=== PATIENT | female | born 1960 | race Caucasian/White ===

== ENCOUNTER 2017-02-10 09:59 | Emergency (ER) | payer OTHER, SELFPAY ==
[~2017-02-10 09:59] MED LIST: Iopamidol 370 76% 100 ML VIAL ONE
[2017-02-10 10:52] LABS: #Eosinphils 0.1 thou/uL (0.0-0.7); #Lymphocytes 1.1 thou/uL (1.20-3.40); #Monocytes 0.4 thou/uL (0.11-0.59); #Neutrophils 10.1 thou/uL (1.40-6.50); %Basophils 0.2 % (0.0-1.0); %Eosinophils 0.5 % (0.0-10.0); %Lymphocytes 9.1 % (21.0-51.0); %Monocytes 3.8 % (0.0-10.0); %Neutrophils 86.4 % (42.0-75.0); Hemoglobin 14.9 g/dL (12.0-16.0); Mean Corpuscular HGB CONC 31.7 g/dL (32.0-36.0); Mean Corpuscular Hemoglobin 31.3 pg (27.0-31.0); Mean Corpuscular Volume 98.8 fl (81.0-99.0); Mean Platelet Volume 6.9 fL (7.4-10.4); Platelet Count 325 thou/uL (130-400); RBC Distribution Width 12.9 % (11.5-14.5); Red Blood Cell (RBC) Count 4.76 mill/uL (4.20-5.40); White Blood Cell (WBC) Count 11.6 thou/uL (4.8-10.8)
[2017-02-10 11:06] LABS: ALT (SGPT) 13 U/L (8-55); AST (SGOT) 15 U/L (5-34); Albumin 3.6 g/dL (3.5-5.0); Alkaline Phosphatase 43 U/L (40-150); Anion Gap 15 mmol/L (10-20); BUN (Urea Nitrogen) 11 mg/dL (9.8-20.1); Bilirubin, Total 0.4 mg/dL (0.2-1.2); Calc. Creatinine Clearance 0 mL/min (70-130); Calcium 8.6 mg/dL (7.8-10.44); Carbon Dioxide 22 mmol/L (22-29); Chloride 106 mmol/L (98-107); Estimated GFR-MDRD 81; Globulin 2.4 g/dL (2.4-3.5); Glucose 163 mg/dL (70-105); Potassium 3.7 mmol/L (3.5-5.1); Sodium 139 mmol/L (136-145)
[2017-02-10 11:07] LABS: CKMB 2.2 ng/mL (0-6.6); Troponin I Less than 0.010 ng/mL (< 0.028)
--- NOTE | 2017-02-10 11:24 | CT ---
CT BRAIN WITHOUT CONTRAST: HISTORY: Dizziness, syncope, probable trauma to the head. FINDINGS: No evidence of infarct, hemorrhage, midline shift, or abnormal extraaxial fluid collections is seen. The ventricular size is normal and the basilar cisterns are patent. The bony calvarium is intact. There is mild mucosal disease in the paranasal sinuses. IMPRESSION: No Ct evidence of acute intracranial process. POS: CET
--- NOTE | 2017-02-10 13:10 | CT ---
CTA CHEST HISTORY: A 56-year-old with a history of dizziness. Syncope. TECHNIQUE: A contrast enhanced CTA of the chest is performed, and 2D and 3D reconstructed images are performed on an independent 3D work station. FINDINGS: Images demonstrate areas of dense calcification or barium in the right upper lobe, as well as in the left lower lobe. These appear to be chronic. No evidence of acute pneumonia seen. No evidence of filling defect seen in the pulmonary arteries, to suggest pulmonary emboli. No evidence of pleural or pericardial effusion seen. There may be an accessory spleen or a left upper quadrant mass, sepa rate from the adrenal gland, just below the left hemidiaphragm, measuring 3.1 x 1.3 cm. IMPRESSION: No evidence of pulmonary emboli seen. POS: JENNY
== END 2017-02-10 13:47 | disposition home or self-care (01) ==
LOC: NAV ERS 09:59
DX: S09.90XA Unspecified injury of head, initial encounter (principal); F41.9 Anxiety disorder, unspecified; R55 Syncope and collapse; F17.210 Nicotine dependence, cigarettes, uncomplicated; W19.XXXA Unspecified fall, initial encounter
CPT/HCPCS: 36415; 70450; 71275; 80053; 82553; 84484; 85025; 85379; 93005; 96360; 96361

== ENCOUNTER 2020-11-26 12:24 | Emergency (ER) | payer OTHER, SELFPAY ==
[2020-11-26 13:15] LABS: #Basophils 0.1 thou/uL (0.0-0.2); #Eosinphils 0.2 thou/uL (0.0-0.7); #Monocytes 0.9 thou/uL (0.11-0.59); #Neutrophils 6.7 thou/uL (1.40-6.50); %Basophils 0.9 % (0.0-1.0); %Eosinophils 1.8 % (0.0-10.0); %Lymphocytes 20.6 % (21.0-51.0); %Monocytes 9.1 % (0.0-10.0); %Neutrophils 67.5 % (42.0-75.0); Hemoglobin 14.9 g/dL (12.0-16.0); Mean Corpuscular HGB CONC 30.3 g/dL (32.0-36.0); Mean Corpuscular Hemoglobin 31.3 pg (27.0-31.0); Mean Platelet Volume 7.7 fL (7.4-10.4); Platelet Count 465 thou/uL (130-400); RBC Distribution Width 12.2 % (11.5-14.5); Red Blood Cell (RBC) Count 4.75 mill/uL (4.20-5.40); White Blood Cell (WBC) Count 9.9 thou/uL (4.8-10.8)
[2020-11-26] MEDS ORDERED: Benzonatate 100 MG CAP ONE (13:18)
[2020-11-26 13:32] LABS: ALT (SGPT) 16 U/L (8-55); AST (SGOT) 17 U/L (5-34); Albumin 3.8 g/dL (3.5-5.0); Alkaline Phosphatase 102 U/L (40-110); Anion Gap 16 mmol/L (10-20); BUN (Urea Nitrogen) 10 mg/dL (9.8-20.1); Bilirubin, Total 0.1 mg/dL (0.2-1.2); Calc. Creatinine Clearance 0 mL/min (70-130); Calcium 9.4 mg/dL (7.8-10.44); Carbon Dioxide 27 mmol/L (22-29); Chloride 101 mmol/L (98-107); Globulin 3.6 g/dL (2.4-3.5); Glucose 97 mg/dL (70-105); Potassium 4.4 mmol/L (3.5-5.1); Protein, Total 7.4 g/dL (6.0-8.3); Sodium 140 mmol/L (136-145)
== END 2020-11-26 14:30 | disposition home or self-care (01) ==
LOC: NAV ERS 12:24
DX: J20.9 Acute bronchitis, unspecified (principal); F17.210 Nicotine dependence, cigarettes, uncomplicated
CPT/HCPCS: 36415; 71046; 80053; 83880; 85025; 85379; 93005; J7620

== ENCOUNTER 2022-03-22 03:37 | Emergency (ER) | payer OTHER ==
[2022-03-22] MEDS ORDERED: methylPREDNISolone Sod Succ/PF 125 MG/2 ML VIAL ONE (04:08)
[2022-03-22 04:18] LABS: #Basophils 0.1 thou/uL (0.0-0.2); #Lymphocytes 1.3 thou/uL (1.20-3.40); #Monocytes 1.1 thou/uL (0.11-0.59); #Neutrophils 9.9 thou/uL (1.40-6.50); %Basophils 0.7 % (0.0-1.0); %Eosinophils 0.3 % (0.0-10.0); %Lymphocytes 10.6 % (21.0-51.0); %Neutrophils 79.4 % (42.0-75.0); Hemoglobin 15.2 g/dL (12.0-16.0); Mean Corpuscular HGB CONC 32.4 g/dL (32.0-36.0); Mean Corpuscular Hemoglobin 33.2 pg (27.0-31.0); Mean Platelet Volume 8.2 fL (7.4-10.4); Platelet Count 307 thou/uL (130-400); RBC Distribution Width 13.4 % (11.5-14.5); Red Blood Cell (RBC) Count 4.56 mill/uL (4.20-5.40); White Blood Cell (WBC) Count 12.5 thou/uL (4.8-10.8)
[2022-03-22] MEDS ORDERED: Albuterol Sulfate 2.5 mg/3 ml Neb ONE (04:19)
[2022-03-22 04:24] LABS: Base Excess-Venous 2.5 mmol/L (-2.0 to 3.0); Bicarbonate (HCO3v) 30.8 mmol/L (22.0-28.0); CO2 Tension (PvCO2) 59.6 mmHg (42.0-51.0); Chloride 92 mmol/L (98-107); Hemoglobin - Calc 17.8 g/dL (12.0-16.0); Potassium 4.5 mmol/L (3.5-5.1); Sodium 129 mmol/L (138-145); T. Carbon Dioxide 32.6 mmol/L (22.0-28.0); vO2 Saturation-calc 46.7 % (60.0-85.0)
[2022-03-22 04:28] LABS: ALT (SGPT) 44 U/L (8-55); AST (SGOT) 44 U/L (5-34); Albumin 3.7 g/dL (3.5-5.0); Alkaline Phosphatase 100 U/L (40-110); Anion Gap 16 mmol/L (10-20); BUN (Urea Nitrogen) 6 mg/dL (9.8-20.1); Bilirubin, Total 0.5 mg/dL (0.2-1.2); Calc. Creatinine Clearance 0 mL/min (70-130); Carbon Dioxide 30 mmol/L (22-29); Chloride 90 mmol/L (98-107); Estimated GFR 100; Globulin 2.9 g/dL (2.4-3.5); Glucose 98 mg/dL (70-105); Potassium 4.7 mmol/L (3.5-5.1); Protein, Total 6.6 g/dL (6.0-8.3); Sodium 131 mmol/L (136-145)
[2022-03-22 05:00] LABS: SARS-CoV-2 NAA Rapid Test Not Detected (NotDetected)
[2022-03-22] MEDS ORDERED: Sodium Chloride 0.9% 100 ML ONE (05:00)
[2022-03-22] MEDS ORDERED: cefTRIAXone\\ROCEPHIN 2 GM VIAL ONE (05:00)
[2022-03-22] MEDS ORDERED: Magnesium 2 GM/50 ML BAG (IN WATER) ONE (05:04)
[2022-03-22] MEDS ORDERED: Sodium Chloride 0.9% 250 ML 250 ML ONE (05:09)
[2022-03-22] MEDS ORDERED: Azithromycin 500 MG VIAL ONE (05:09)
[2022-03-22] MEDS ORDERED: Acetaminophen 500 MG TAB ONE (06:09)
== END 2022-03-22 06:40 | disposition short-term general hospital (02) ==
LOC: NAV ERS 03:37
DX: J18.9 Pneumonia, unspecified organism (principal); J44.9 Chronic obstructive pulmonary disease, unspecified; Z20.822 Contact with and (suspected) exposure to COVID-19; F17.210 Nicotine dependence, cigarettes, uncomplicated
CPT/HCPCS: 36415; 71045; 80053; 82330; 82435; 82803; 83605; 83880; 84132; 84295; 84484; 85014; 85025; 87040; 87804; 93005; 96365; 96367; 96375; J0456; J0696; J2930; J3475; J3490; J7050; J7611; J7620; U0002

== ENCOUNTER 2022-05-17 08:55 | Emergency (ER) | payer BC ==
[2022-05-17 09:42] LABS: #Basophils 0.1 thou/uL (0.0-0.2); #Lymphocytes 1.1 thou/uL (1.20-3.40); #Neutrophils 6.3 thou/uL (1.40-6.50); %Basophils 1.4 % (0.0-1.0); %Eosinophils 0.1 % (0.0-10.0); %Lymphocytes 12.4 % (21.0-51.0); %Neutrophils 74.1 % (42.0-75.0); Hemoglobin 16.9 g/dL (12.0-16.0); Mean Corpuscular HGB CONC 32.1 g/dL (32.0-36.0); Mean Platelet Volume 8.1 fL (7.4-10.4); Platelet Count 251 10x3/uL (130-400); RBC Distribution Width 12.7 % (11.5-14.5); Red Blood Cell (RBC) Count 5.11 mill/uL (4.20-5.40); White Blood Cell (WBC) Count 8.5 10x3/uL (4.8-10.8)
[2022-05-17 09:56] LABS: ALT (SGPT) 72 U/L (8-55); AST (SGOT) 79 U/L (5-34); Albumin 3.7 g/dL (3.5-5.0); Alkaline Phosphatase 105 U/L (40-110); Anion Gap 14 mmol/L (10-20); BUN (Urea Nitrogen) 7 mg/dL (9.8-20.1); Bilirubin, Total 0.4 mg/dL (0.2-1.2); Calc. Creatinine Clearance 0 mL/min (70-130); Calcium 9.1 mg/dL (7.8-10.44); Carbon Dioxide 29 mmol/L (22-29); Chloride 86 mmol/L (98-107); Estimated GFR 104; Globulin 3.3 g/dL (2.4-3.5); Glucose 114 mg/dL (70-105); Potassium 4.9 mmol/L (3.5-5.1); Sodium 124 mmol/L (136-145)
[2022-05-17] MEDS ORDERED: Sodium Chloride 0.9% 1,000 ML ONE (10:04)
[2022-05-17] MEDS ORDERED: Magnesium 2 GM/50 ML BAG (IN WATER) ONE (10:07)
[2022-05-17] MEDS ORDERED: methylPREDNISolone Sod Succ/PF 125 MG/2 ML VIAL ONE (10:11)
[2022-05-17] MEDS ORDERED: Ketorolac Tromethamine 30 MG/ML VIAL ONE (10:11)
[2022-05-17] MEDS ORDERED: Albuterol Sulfate 2.5 mg/3 ml Neb ONE (11:51)
[2022-05-17 11:55] LABS: Bilirubin Negative (Negative); Blood, Urine Trace (Negative); Clarity Clear (Clear); Glucose, Urine (Dipstick) Negative (Negative); Ketone, Urine Negative (Negative); Leukocyte Negative (Negative); Nitrite Negative (Negative); Protein, Urine (Dipstick) 100 mg/dL (Neg-Trace); Specific Gravity, Urine 1.015 (1.005-1.030); Urobilinogen 0.2 mg/dL (Less than 2)
[2022-05-17] MEDS ORDERED: cefTRIAXone\\ROCEPHIN 1 GM VIAL ONE (11:55)
[2022-05-17] MEDS ORDERED: Sodium Chloride 0.9% 100 ML ONE (11:55)
[2022-05-17 12:15] LABS: RBC/HPF None Seen HPF (0-3); Squamous Epithelial 0-3 HPF (0-3); WBC/HPF 0-3 HPF (0-3)
[2022-05-17] MEDS ORDERED: Azithromycin 500 MG VIAL ONE (12:25)
[2022-05-17] MEDS ORDERED: Sodium Chloride 0.9% 250 ML 250 ML ONE (12:25)
[2022-05-17 12:40] LABS: SARS-CoV-2 NAA Rapid Test DETECTED (NotDetected)
== END 2022-05-17 12:55 | disposition short-term general hospital (02) ==
LOC: NAV ERS 08:55
DX: U07.1 COVID-19 (principal); J96.01 Acute respiratory failure with hypoxia; J44.1 Chronic obstructive pulmonary disease with (acute) exacerbation; J18.1 Lobar pneumonia, unspecified organism; F17.210 Nicotine dependence, cigarettes, uncomplicated
CPT/HCPCS: 51701; 71045; 80053; 81003; 81015; 83605; 83880; 84484; 85025; 87040; 87804; 93005; 96365; 96367; 96375; J0456; J0696; J1885; J2930; J3475; J3490; J7050; J7611; J7620; U0002

== ENCOUNTER 2023-10-29 13:01 | Emergency (ER) | payer BC, OTHER ==
[2023-10-29] MEDS ORDERED: Acetaminophen 500 MG TAB ONE (13:54)
== END 2023-10-29 15:07 | disposition home or self-care (01) ==
LOC: NAV ERS 13:01
DX: S20.219A Contusion of unspecified front wall of thorax, initial encounter (principal); J44.9 Chronic obstructive pulmonary disease, unspecified; F17.210 Nicotine dependence, cigarettes, uncomplicated; V89.2XXA Person injured in unspecified motor-vehicle accident, traffic, initial encounter
CPT/HCPCS: 71046

== ENCOUNTER 2024-02-18 14:22 | Outpatient (CLI) | payer BC | END 2024-02-18 14:23 | disposition home or self-care (01) | LOC: NAV RAD 14:22 | PROVIDERS: ATTEND Nurse Practitioner Family | DX: M25.531 Pain in right wrist (principal); M19.031 Primary osteoarthritis, right wrist; M18.11 Unilateral primary osteoarthritis of first carpometacarpal joint, right hand ==

== ENCOUNTER 2025-05-21 07:36 | Emergency (ER) | payer BC, SELFPAY ==
[2025-05-21] MEDS ORDERED: Ondansetron PF 4 MG/2 ML Vial ONE (07:57)
[2025-05-21] MEDS ORDERED: Aspirin Chewable 81 MG TAB ONE (08:29)
[2025-05-21] MEDS ORDERED: Pantoprazole 40 MG VIAL ONE (08:30)
[2025-05-21] MEDS ORDERED: Simethicone Chewable 80 MG TAB ONE (08:30)
[2025-05-21] MEDS ORDERED: Nitroglycerin 0.4 MG TAB 1 EACH ONE ×2 (08:30→09:04)
[2025-05-21 08:35] LABS: Red Blood Cell (RBC) Count 5.21 mill/uL (4.20-5.40); White Blood Cell (WBC) Count 13.7 10x3/uL (4.8-10.8)
[2025-05-21 08:36] LABS: #Basophils 0.2 thou/uL (0.0-0.2); #Eosinophils 0.2 thou/uL (0.0-0.7); #Lymphocytes 3.1 thou/uL (1.20-3.40); #Monocytes 1.0 thou/uL (0.11-0.59); #Neutrophils 9.3 thou/uL (1.40-6.50); %Basophils 1.4 % (0.0-1.0); %Eosinophils 1.3 % (0.0-10.0); %Lymphocytes 22.9 % (21.0-51.0); %Monocytes 7.1 % (0.0-10.0); %Neutrophils 67.3 % (42.0-75.0); Hematocrit 48.2 % (36.0-47.0); Hemoglobin 16.0 g/dL (12.0-16.0); Manual Diff?? NO; Mean Corpuscular Hemoglobin 30.7 pg (27.0-31.0); Mean Corpuscular Volume 92.5 fl (78.0-98.0); Platelet Count 418 10x3/uL (130-400)
[2025-05-21 08:38] LABS: Troponin I Less than 0.010 ng/mL (< 0.028)
[2025-05-21 08:45] LABS: ALT (SGPT) 22 U/L (Less than 34); AST (SGOT) 25 U/L (11-34); Albumin 4.1 g/dL (3.1-4.5); Alkaline Phosphatase 72 U/L (40-110); Anion Gap 17 mmol/L (10-20); BUN (Urea Nitrogen) 17 mg/dL (9.8-20.1); Bilirubin, Total 0.3 mg/dL (0.3-1.2); Calc. Creatinine Clearance 0 mL/min (70-130); Calcium 10.3 mg/dL (7.8-10.44); Carbon Dioxide 23 mmol/L (23-31); Chloride 104 mmol/L (98-107); Globulin 3.2 g/dL (2.4-3.5); Glucose 111 mg/dL (80-115); Potassium 3.9 mmol/L (3.5-5.1); Sodium 140 mmol/L (136-145)
[2025-05-21] MEDS ORDERED: Mag-Al Plus 1200/1200/120 MG (30 mL) UDCUP ONE (08:57)
[2025-05-21] MEDS ORDERED: Metoclopramide HCl 10 MG (2 mL) VIAL ONE (09:57)
[2025-05-21 11:42] LABS: Troponin I 0.013 ng/mL (< 0.028)
[2025-05-21] MEDS ORDERED: Sucralfate 1 GM TAB ONE (11:54)
== END 2025-05-21 13:21 | disposition home or self-care (01) ==
LOC: NAV ERS 07:36
DX: R07.9 Chest pain, unspecified (principal); R11.2 Nausea with vomiting, unspecified; I10 Essential (primary) hypertension; I25.2 Old myocardial infarction; J44.9 Chronic obstructive pulmonary disease, unspecified; E78.00 Pure hypercholesterolemia, unspecified; F17.210 Nicotine dependence, cigarettes, uncomplicated; Z79.51 Long term (current) use of inhaled steroids; Z79.899 Other long term (current) drug therapy
CPT/HCPCS: 71045; 80053; 83690; 84484; 85025; 85379; 93005; 96374; 96375; 96376; J2272; J2405; J2470; J2765